=== PATIENT | male | born 1945 | race Caucasian/White ===

== ENCOUNTER 2023-02-28 16:13 | Emergency (ER) | payer OTHER ==
--- NOTE | 2023-02-28 17:32 | RAD REPORT ---
EXAM DESCRIPTION: Donna Single View02/28/2023 5:20 pm CLINICAL HISTORY: fall, chest pain COMPARISON: Outpt Chest Pa/Lat (2 Views) dated 12/09/2016 TECHNIQUE: Portable AP view of the chest. FINDINGS: The lungs are clear. Bibasilar atelectasis and chronic interstitial opacities, suggestive of COPD. No pneumothorax or effusion. The cardiomediastinal contours are unremarkable. Left chest wa ll pacer/AICD in place. IMPRESSION: No acute cardiopulmonary process. Changes of COPD again noted.
[2023-02-28 17:59] LABS: Absolute Lymphocytes (CBC) 133.3 K/uL (0.7-4.9); Hematocrit 41.4 % (39.6-49.0); Lymphocytes % 92.6 % (15.3-44.8); MCV 85.1 fL (80-100); RBC Red Blood Cell Count 4.87 M/uL (4.33-5.43)
[2023-02-28 18:18] LABS: Potassium 5.3 mEq/L (3.5-5.1)
[2023-02-28 18:26] LABS: Troponin High Sensitivity 255.6 pg/mL (<58.9)
[2023-02-28 18:37] LABS: Specific Gravity 1.027 (1.005-1.030); Urine Bacteria <20 /HPF (<20); Urine Bilirubin NEGATIVE (Negative); Urine Blood 2+ (Negative); Urine Clarity Extremely Turbid (Clear); Urine Color Dark-Orange (Yellow); Urine Crystals Unidentified Few /HPF (None Seen); Urine Glucose NEGATIVE (Negative); Urine Mucus 1+ /HPF (None Seen); Urine Protein 1+ (Negative); Urine RBC <5 /HPF (None Seen); Urine Urobilinogen 1+ (Normal); Urine WBC Clump Many /HPF (None Seen); Urine pH 5.5 (5.0-7.0)
[2023-02-28] MEDS ORDERED: NA CHLORIDE 0.9% 100 ML ONE (18:49)
[2023-02-28] MEDS ORDERED: CEFTRIAXONE 2000 MG/VIAL ONE (18:49)
[2023-02-28] MEDS ORDERED: ASPIRIN 81 MG CHEWABLE TABLET ONE (19:00)
--- NOTE | 2023-02-28 19:05 | EDPHYS ---
Physician Documentation [facility] – [place], [place] Name: Luis Deluca Age: 77 yrs Sex: Male : 1945 Arrival Date: 02/28/2023 Time: 16:13 Bed 3 Private MD: ED Physician Troy Sutherland HPI: 02/28 16:28 This 77 yrs old Male presents to ER via Wheelchair with complaints of Fall Injury. jmm 16:28 Is a 77-year-old male complaining of chest pain after a fall which occurred just prior [facility] to arrival. Patient states that he just tripped. Family stated that they brought the patient to the ER due to weakness, the patient stated that he was unable to stand. Denies shortness of breath. Is concerned he may have broken a rib. Patient does have a pacemaker but otherwise does not take medication.. Historical: - Allergies: 16:28 No Known Allergies; ss - Home Meds: 16:28 None [Active]; ss - PMHx: 16:28 None; ss - PSHx: 16:28 Pacemaker; ss - Immunization history:: Client reports having NOT received the Covid vaccine. - Social history:: Smoking status: Patient reports the use of cigarette tobacco products, smokes one pack cigarettes per day. ROS: 16:28 Constitutional: Positive for fatigue. jmm 16:28 Cardiovascular: Positive for chest pain. 16:28 All other systems are negative. 19:05 Constitutional: Negative for fever, chills bs3 Exam: 16:28 Constitutional: This is a well developed, well nourished patient who is awake, alert, jmm and in no acute distress. Head/Face: atraumatic. Eyes: EOMI, no conjunctival erythema appreciated ENT: Moist Mucus Membranes Neck: Trachea midline, Supple Chest/axilla: Normal chest wall appearance and motion. Cardiovascular: Regular rate and rhythm. No edema appreciated Respiratory: Normal respirations, no respiratory distress appreciated Abdomen/GI: Non distended Back: Normal ROM Skin: General appearance color normal MS/ Extremity: Moves all extremities, no obvious deformities appreciated, no edema noted to the lower extremities Neuro: Awake and alert Psych: Behavior is normal, Mood is normal, Patient is cooperative and pleasant Vital Signs: 16:25 BP 131 / 59; Pulse 82; Resp 17; Temp 99.6(O); Pulse Ox 95% on R/A; Weight 71.21 kg; ss Height 5 ft. 9 in. ; Pain 7/10; 17:55 BP 145 / 89; Pulse 85; Resp 18; Pulse Ox 96% on R/A; Pain 0/10; ld1 18:31 BP 150 / 74; Pulse 78; Resp 18; Pulse Ox 95% on R/A; ld1 19:08 BP 139 / 63; Pulse 74; Resp 16; Pulse Ox 93% on R/A; jb4 20:18 BP 123 / 67; Pulse 74; Resp 17; Pulse Ox 94% on R/A; jb4 20:52 BP 136 / 54; Pulse 71; Resp 18; Pulse Ox 98% on 2 lpm NC; jb4 16:25 Body Mass Index 23.18 (71.21 kg, 175.26 cm) ss 16:25 Pain Scale: Adult ss 17:55 Pain Scale: Adult ld1 MDM: 16:45 Patient medically screened. [facility] 18:54 Differential diagnosis: Fracture, sepsis, NSTEMI, rib fracture, chest wall contusion. [facility] Data reviewed: vital signs, nurses notes, lab test result(s). Counseling: I had a detailed discussion with the patient and/or guardian regarding: the historical points, exam findings, and any diagnostic results supporting the discharge/admit diagnosis, lab results, the need to transfer to another facility. ED course: I discussed the patient with hospitalist who recommended transfer due to lack of oncology.. ED course: I discussed the need for transfer with the patient and the family whom have a preference to go to [facility]. 19:16 ED course: given elevated wbc, concering for cml, discussed with hospitalist, no bs3 oncology here, they refused admission here due to lack of oncology and will therefore transfer, family and pt requests [facility]. 02/28 16:28 Order name: Basic Metabolic Panel; Complete Time: 18:30 [facility] 02/28 16:28 Order name: CBC with Diff; Complete Time: 13:02 [facility] 02/28 16:28 Order name: Troponin HS; Complete Time: 18:30 [facility] 02/28 16:30 Order name: Urinalysis w/ reflexes; Complete Time: 18:39 [facility] 02/28 16:30 Order name: ETOH Level; Complete Time: 18:30 [facility] 02/28 18:13 Order name: Blood Culture Adult (2) [facility] 02/28 18:13 Order name: Lactate w/ 2H reflex if indic.; Complete Time: 19:44 [facility] 02/28 18:35 Order name: Manual Differential; Complete Time: 13:02 [facility] 02/28 18:41 Order name: Urine Culture [facility] 02/28 16:28 Order name: XRAY Chest (1 view); Complete Time: 17:34 [facility] 02/28 16:28 Order name: EKG; Complete Time: 16:29 [facility] 02/28 16:28 Order name: Cardiac monitoring; Complete Time: 17:37 [facility] 02/28 16:28 Order name: EKG - Nurse/Tech; Complete Time: 17:55 [facility] 02/28 16:28 Order name: IV Saline Lock; Complete Time: 17:55 [facility] 02/28 16:28 Order name: Labs collected and sent; Complete Time: 17:55 [facility] 02/28 16:28 Order name: O2 Per Protocol; Complete Time: 17:37 [facility] 02/28 16:28 Order name: O2 Sat Monitoring; Complete Time: 17:37 [facility] 02/28 18:12 Order name: Wound Care: clean wounds, Steri-Strip; Complete Time: 18:31 [facility] Administered Medications: 18:45 Drug: Rocephin IV 2 grams Route: IV; Rate: calculated rate; Site: right antecubital; mb9 18:54 Drug: Aspirin PO Chewable Tablet 324 mg Route: PO; mb9 19:00 Follow up: Response: No adverse reaction mb9 19:56 Drug: Enoxaparin Sub-Q 1 mg/kg Route: Sub-Q; Site: right upper abdomen; jb4 Disposition: 19:03 I agree with the assessment and plan of care. PA/CHEMICAL PATHOLOGIST's history reviewed, patient bs3 interviewed, and examined. HPI: Disposition Summary: 02/28/23 19:05 Transfer Ordered Transfer Location: [facility] bs3 Reason: Higher level of care bs3 Condition: Fair bs3 Problem: new bs3 Symptoms: have worsened bs3 Accepting Physician: LYNNE(02/28/23 20:58) sb4 Diagnosis - Muscle weakness (generalized) bs3 Forms: - Medication Reconciliation Form bs3 - SBAR form bs3 Signatures: Dispatcher [employer] EDZeyad Calvillo, PA PA jmm Smirch, Jojo, RN RN ss Kamran Valadez RN RN jb4 Troy Sutherland MD MD bs3 Nannette Almazan PA-C PA-C sb4 Jessica Delvalle RN RN mb9 Corrections: (The following items were deleted from the chart) 20:58 19:05 [facility] bs3 sb4
--- NOTE | 2023-02-28 19:05 | ER ---
Nurse's Notes [facility] Name: Luis Deluca Age: 77 yrs Sex: Male : 1945 Arrival Date: 02/28/2023 Time: 16:13 Bed 3 Private MD: Diagnosis: Muscle weakness (generalized) Presentation: 02/28 16:23 Chief complaint: Patient states: L chest wall pain after falling from standing ss yesterday evening around 6pm. 16:25 Coronavirus screen: Client denies travel out of the [place] in the last 14 days. Ebola ss Screen: Patient denies exposure to infectious person. Patient denies travel to an Ebola-affected area in the 21 days before illness onset. Initial Sepsis Screen: Does the patient meet any 2 criteria? No. Patient's initial sepsis screen is negative. Does the patient have a suspected source of infection? No. Patient's initial sepsis screen is negative. Risk Assessment: Do you want to hurt yourself or someone else? Patient reports no desire to harm self or others. Onset of symptoms was February 27, 2023. 16:25 Method Of Arrival: Wheelchair ss 16:25 Acuity: RD 3 ss Historical: - Allergies: 16:28 No Known Allergies; ss - Home Meds: 16:28 None [Active]; ss - PMHx: 16:28 None; ss - PSHx: 16:28 Pacemaker; ss - Immunization history:: Client reports having NOT received the Covid vaccine. - Social history:: Smoking status: Patient reports the use of cigarette tobacco products, smokes one pack cigarettes per day. Screenin:55 [facility] ED Fall Risk Assessment (Adult) History of falling in the last 3 months, ld1 including since admission No falls in past 3 months (0 pts). [facility] ED Fall Risk Assessment (Adult) History of falling in the last 3 months, including since admission. Abuse screen: Denies threats or abuse. Denies injuries from another. Nutritional screening: No deficits noted. Tuberculosis screening: No symptoms or risk factors identified. Assessment: 17:55 General: Appears in no apparent distress. comfortable, Behavior is calm, cooperative, ld1 appropriate for age. Pain: Denies pain. Neuro: Level of Consciousness is awake, alert, obeys commands, Oriented to person, place, time, situation. Cardiovascular: Capillary refill < 3 seconds Patient's skin is warm and dry. Respiratory: Airway is patent Respiratory effort is even, unlabored. GI: Abdomen is flat, non-distended. : No signs and/or symptoms were reported regarding the genitourinary system. EENT: No signs and/or symptoms were reported regarding the EENT system. Derm: No signs and/or symptoms reported regarding the dermatologic system. Musculoskeletal: No signs and/or symptoms reported regarding the musculoskeletal system. 18:45 Reassessment: No changes from previously documented assessment. Patient and/or family mb9 updated on plan of care and expected duration. Pain level reassessed. Patient is alert, oriented x 3, equal unlabored respirations, skin warm/dry/pink. 19:08 Reassessment: Patient appears in no apparent distress at this time. Patient and/or jb4 family updated on plan of care and expected duration. Pain level reassessed. Patient is alert, oriented x 3, equal unlabored respirations, skin warm/dry/pink. 20:18 Reassessment: Patient appears in no apparent distress at this time. Patient and/or jb4 family updated on plan of care and expected duration. Pain level reassessed. Patient is alert, oriented x 3, equal unlabored respirations, skin warm/dry/pink. 20:52 Reassessment: Patient appears in no apparent distress at this time. Patient and/or jb4 family updated on plan of care and expected duration. Pain level reassessed. Patient is alert, oriented x 3, equal unlabored respirations, skin warm/dry/pink. Pt noted to desat while sleeping. Placed on 2L NC. Provider and EMS notified. Pt transferred to receiving facility VIA EMS. O2 increased to 98% on 2L. Vital Signs: 16:25 BP 131 / 59; Pulse 82; Resp 17; Temp 99.6(O); Pulse Ox 95% on R/A; Weight 71.21 kg; ss Height 5 ft. 9 in. ; Pain 7/10; 17:55 BP 145 / 89; Pulse 85; Resp 18; Pulse Ox 96% on R/A; Pain 0/10; ld1 18:31 BP 150 / 74; Pulse 78; Resp 18; Pulse Ox 95% on R/A; ld1 19:08 BP 139 / 63; Pulse 74; Resp 16; Pulse Ox 93% on R/A; jb4 20:18 BP 123 / 67; Pulse 74; Resp 17; Pulse Ox 94% on R/A; jb4 20:52 BP 136 / 54; Pulse 71; Resp 18; Pulse Ox 98% on 2 lpm NC; jb4 16:25 Body Mass Index 23.18 (71.21 kg, 175.26 cm) ss 16:25 Pain Scale: Adult ss 17:55 Pain Scale: Adult ld1 ED Course: 16:15 Patient arrived in ED. rg4 16:21 Zeyad Vann PA is PHCP. jmm 16:21 Troy Sutherland MD is Attending Physician. jmm 16:28 Triage completed. ss 16:28 Arm band placed on right wrist. ss 17:22 XRAY Chest (1 view) In Process Unspecified. EDMS 17:36 Jessica Delvalle, TATUM is Primary Nurse. mb9 17:55 Patient has correct armband on for positive identification. Placed in gown. Bed in low ld1 position. Call light in reach. Side rails up X2. monitor tech on. Pulse ox on. NIBP on. Door closed. Noise minimized. Warm blanket given. 17:55 Inserted saline lock: 20 gauge in right antecubital area, using aseptic technique. ld1 Blood collected. 17:55 No provider procedures requiring assistance completed. ld1 17:56 EKG done, by ED staff, reviewed by Zeyad CAMPBELL. mb9 18:13 ETOH Level Sent. mb9 18:13 Urinalysis w/ reflexes Sent. mb9 18:40 Blood Culture Adult (2) Sent. hb 18:40 Lactate w/ 2H reflex if indic. Sent. hb 19:03 Urine Culture Sent. mb9 19:38 Initiated transfer to [facility], spoke with Js. wm 20:01 Pt accepted for transfer by Dr. Anders per Js Vergara. wm Administered Medications: 18:45 Drug: Rocephin IV 2 grams Route: IV; Rate: calculated rate; Site: right antecubital; mb9 18:54 Drug: Aspirin PO Chewable Tablet 324 mg Route: PO; mb9 19:00 Follow up: Response: No adverse reaction mb9 19:56 Drug: Enoxaparin Sub-Q 1 mg/kg Route: Sub-Q; Site: right upper abdomen; jb4 Medication: 17:55 VIS not applicable for this client. ld1 Outcome: 19:05 ER care complete, transfer ordered by . bs3 20:58 Patient left the ED. sb4 20:59 Transferred by ground EMS to [facility], Transfer form jb4 completed. X-rays sent w/ patient. 20:59 Condition: stable 20:59 Discharge instructions given to patient, family, Instructed on the need for transfer, Demonstrated understanding of instructions. Signatures: Dispatcher [employer] EDMS Zeyad Vann PA PA jmm Smirch, Shelby, RN RN ss Ngoc Cuellar RN RN Letty Crump rg4 Kamran Valadez RN RN jb4 Stephanie Rowe RN RN ld1 Kristina Navarro Brandon, MD MD bs3 Nannette Almazan PA-C PA-C sb4 Jessica Delvalle RN RN mb9 Corrections: (The following items were deleted from the chart) 16:28 16:23 Chief complaint: Patient states: L lateral chest wall pain, L knee and pain to R ss forearm. Fall from standing yesterday evening around 6pm last night ss
[2023-02-28] MEDS ORDERED: ENOXAPARIN 80 MG/0.8 ML SQ ONE (19:58)
[2023-02-28 20:18] LABS: Blood Morphology Comment NOT SEEN (NOT SEEN); Platelet Estimate DECR; Smudge Cells PRESENT
[2023-02-28 21:33] VITALS: TEMP 99.6
[2023-02-28 21:42] VITALS: BP 136/54; O2SAT 98
--- NOTE | 2023-03-03 10:19 | EKG ---
Test Date: 2023-02-28 Test Time: 17:46:32 Behavioral Health Tech: MB MEASUREMENT RESULTS: Intervals: Rate: 77 [place]: 166 QRSD: 82 QT: 392 QTc: 443 [place]: P: 60 [place]: 166 QRS: 71 T: 65 INTERPRETIVE STATEMENTS: Sinus rhythm with premature supraventricular complexes Otherwise normal ECG Compared to ECG 10/02/2006 08:35:52 Atrial premature complex(es) now present Electronically Signed On 03-03-23 10:14:14 CDT by Geovani Spaulding
== END 2023-02-28 20:58 | disposition short-term general hospital (02) ==
LOC: ER 16:13
DX: M62.81 Muscle weakness (generalized) (principal); R53.83 Other fatigue; R07.9 Chest pain, unspecified; F17.210 Nicotine dependence, cigarettes, uncomplicated; Z95.0 Presence of cardiac pacemaker
CPT/HCPCS: 93005; 87040 ×2; 87088; 85025; 81001; 87086; 80048; 36415; 83605; 87077; 87186; 84484; 71045; 96372; 96374; 99285; 82077; J0696